=== PATIENT | female | born 1960 | race Caucasian/White ===

== ENCOUNTER 2017-08-13 08:56 | Day surgery (SDC) | payer BC ==
[~2017-08-13 08:56] MED LIST: SUCCINYLCHOLINE CHLORIDE 100 MG/5 ML SYG IV
[2017-08-13] MEDS ORDERED: FENTAnyl 50 MCG/ML VIAL ×2 (10:10→13:27)
[2017-08-13] MEDS ORDERED: MIDAZOLAM 1 MG/ML 2 ML INJ (10:10)
[2017-08-13] MEDS ORDERED: ROPIVACAINE 0.5 % 30 ML VIAL (10:11)
[2017-08-13] MEDS ORDERED: DEXAMETHASONE 4 MG/ML 1 ML INJ (10:39)
[2017-08-13] MEDS ORDERED: MEPERIDINE 25 MG INJ IV (13:00)
[2017-08-13] MEDS ORDERED: METOCLOPRAMIDE 10 MG INJ IV (13:00)
[2017-08-13] MEDS ORDERED: DIPHENHYDRAMINE 50 MG INJ IV (13:00)
[2017-08-13] MEDS ORDERED: FENTAnyl 50 MCG/ML VIAL IV (13:00)
[2017-08-13] MEDS ORDERED: LIDOCAINE 100 MG SYRINGE (13:09)
[2017-08-13] MEDS ORDERED: CEFAZOLIN 1 GM INJ (13:09)
[2017-08-13] MEDS ORDERED: ROCURONIUM 50 MG INJ (13:09)
[2017-08-13] MEDS ORDERED: SUGAMMADEX SODIUM 200 MG/2 ML VIAL IV (13:09)
[2017-08-13] MEDS ORDERED: PROPOFOL 20 ML (13:09)
[2017-08-13] MEDS: BACITRACIN/POLYMYXIN 28.35 GM OINT TOP (13:39)
[2017-08-13] MEDS: POLYMYXIN/BACITRACIN 1L IRRIG (13:39)
[2017-08-13] MEDS: ONDANSETRON 4 MG INJ IV (13:42)
[2017-08-13] MEDS: FENTAnyl 50 MCG/ML VIAL IV ×2 (13:42→13:50)
[2017-08-13] MEDS: HYDROmorphONE (0.2 MG/ML) 10ML SYG IV ×5 (14:18→16:12)
[2017-08-13] MEDS: morphine 2 MG INJ IV (15:07)
== END 2017-08-13 16:55 | disposition home or self-care (01) ==
LOC: SDS 08:56
DX: S82.841A Displaced bimalleolar fracture of right lower leg, initial encounter for closed fracture (principal); S82.861A Displaced Maisonneuve's fracture of right leg, initial encounter for closed fracture; S93.491A Sprain of other ligament of right ankle, initial encounter; X58.XXXA Exposure to other specified factors, initial encounter
CPT/HCPCS: 27814; 73610; 82306